=== PATIENT | female | born 1975 | race Caucasian/White ===

== ENCOUNTER 2017-10-25 11:26 | Emergency (ER) | payer OTHER ==
[~2017-10-25] VITALS: Ht 157.5 cm; Wt 80.7 kg
[~2017-10-25 11:26] MED LIST: CRUTCH4 USE; CYCL10 PO; HYDACE5 PO; HYDACE5325 PO; IBUP600; IBUP600 PO; IBUP800 PO; META800 PO; NAPR550 PO; PENVK500 PO; PRED20 PO; PROM25 PO; SULTRIDS PO
[2017-10-25] MEDS ORDERED: BUSP15 PO (12:16)
[2017-10-25] MEDS ORDERED: ALBU90OI6 INH (12:16)
[2017-10-25] MEDS ORDERED: ESCI20 PO (12:16)
[2017-10-25] MEDS ORDERED: Norco 5-325 Ta1 EACH PO (13:21)
[2017-10-25] MEDS ORDERED: IBUP600 PO (13:21)
== END 2017-10-25 13:32 | disposition home or self-care (01) ==
LOC: ER 11:26
DX: S93.401A Sprain of unspecified ligament of right ankle, initial encounter (principal); F17.200 Nicotine dependence, unspecified, uncomplicated; Z88.5 Allergy status to narcotic agent; Z79.899 Other long term (current) drug therapy; X50.1XXA Overexertion from prolonged static or awkward postures, initial encounter
CPT/HCPCS: 29515; 72100; 73030; 73610; 99283

== ENCOUNTER 2018-03-25 10:05 | Emergency (ER) | payer OTHER ==
[~2018-03-25] VITALS: Ht 157.5 cm; Wt 91.6 kg
[~2018-03-25 10:05] MED LIST changes: +ALBU90OI6 INH; +BUSP15 PO; +ESCI20 PO; +Norco 5-325 Ta1 EACH PO
[2018-03-25] MEDS ORDERED: HYDHOMSY PO (10:43)
[2018-03-25] MEDS ORDERED: Oxycodone-Apap1 EAC3 PO (10:43)
[2018-03-25] MEDS ORDERED: Hydrocodone-Ap1 EA23 PO (10:44)
[2018-03-25] MEDS ORDERED: LIDO700A20 TOP (10:54)
[2018-03-25] MEDS ORDERED: CYCL10 PO (10:54)
== END 2018-03-25 10:57 | disposition home or self-care (01) ==
LOC: ER 10:05
DX: S20.221A Contusion of right back wall of thorax, initial encounter (principal); F17.200 Nicotine dependence, unspecified, uncomplicated; Z88.5 Allergy status to narcotic agent; Z79.899 Other long term (current) drug therapy; W19.XXXA Unspecified fall, initial encounter; Y93.01 Activity, walking, marching and hiking; Y92.828 Other wilderness area as the place of occurrence of the external cause
CPT/HCPCS: 72070; 99283

== ENCOUNTER 2018-06-12 10:04 | Emergency (ER) | payer OTHER ==
[~2018-06-12] VITALS: Ht 157.5 cm; Wt 90.3 kg
[~2018-06-12 10:04] MED LIST changes: +HYDHOMSY PO; +Hydrocodone-Ap1 EA23 PO; +LIDO700A20 TOP; +Oxycodone-Apap1 EAC3 PO
[2018-06-12] MEDS ORDERED: BENZ100A (10:16)
[2018-06-12] MEDS ORDERED: PRED10 PO (10:17)
[2018-06-12] MEDS ORDERED: AZIT500 PO (10:17)
[2018-06-12 10:54] LABS: BASOPHILS ABSOLUTE AUTO 0.03 K/mm3 (0.00-0.23); BASOPHILS PERCENT AUTO 0 % (0-2); EOSINOPHILS ABSOLUTE AUTO 0.17 K/mm3 (0.00-0.68); EOSINOPHILS PERCENT AUTO 2 % (0-6); Hematocrit 42.6 % (33.0-51.0); Hemoglobin 13.5 g/dL (11.5-16.0); IMMATURE GRAN ABSOLUTE AUTO 0.05 K/mm3 (0.00-0.10); IMMATURE GRAN PERCENT AUTO 0 % (0-1); LYMPHOCYTES ABSOLUTE AUTO 1.58 K/mm3 (0.84-5.20); LYMPHOCYTES PERCENT AUTO 14 % (21-46); MONOCYTES ABSOLUTE AUTO 0.47 K/mm3 (0.16-1.47); MONOCYTES PERCENT AUTO 4 % (4-13); Mean Corpuscular HGB 26.6 pg (26.0-34.0); Mean Corpuscular HGB Conc 31.7 g/dL (31.5-36.5); Mean Corpuscular Volume 84 fL (80-100); Mean Platelet Volume 9.2 fL (9.1-12.4); NEUTROPHILS ABSOLUTE AUTO 8.91 K/mm3 (1.96-9.15); NEUTROPHILS PERCENT AUTO 80 % (41-73); Platelet Count 385 K/mm3 (150-400); RDW Coefficient Variation 16.5 % (11.7-14.2); RDW Standard Deviation 50.3 fL (35.1-46.3); Red Blood Cell Count 5.07 M/mm3 (3.80-5.20); White Blood Cell Count 11.21 K/mm3 (4.00-11.30)
[2018-06-12 11:12] LABS: Alanine Aminotransfer (ALT/SGP 24 U/L (12-78); Albumin, Blood 3.7 g/dL (3.4-5.0); Albumin/Globulin Ratio 0.9 (0.8-1.8); Alk Phos 73 U/L (50-136); Anion Gap 9 mmol/L (6-16); Aspartate Aminotrans (AST/SGOT 22 U/L (12-37); Bilirubin, Total 0.3 mg/dL (0.1-1.0); Blood Urea Nitrogen 9 mg/dL (8-24); Bun/Creatinine Ratio 11.7 (12.0-20.0); CO2, Blood 23 mmol/L (21-32); Calcium, Blood 8.9 mg/dL (8.5-10.1); Chloride, Blood 105 mmol/L (98-108); Creatinine, Blood 0.77 mg/dL (0.40-1.00); Globulin, Blood 4.3 g/dL (2.2-4.0); Glomerular Filtration Rate >60 (60-); Glucose, Blood 94 mg/dL (70-99); Sodium, Blood 137 mmol/L (136-145); Troponin I <0.015 ng/mL (0.000-0.040)
== END 2018-06-12 12:04 | disposition home or self-care (01) ==
LOC: ER 10:04
PROVIDERS: Physician Assistant
DX: R07.9 Chest pain, unspecified (principal); R05 Cough; R06.00 Dyspnea, unspecified; J45.909 Unspecified asthma, uncomplicated; Z88.5 Allergy status to narcotic agent; Z79.899 Other long term (current) drug therapy; Z79.51 Long term (current) use of inhaled steroids; Z79.52 Long term (current) use of systemic steroids; Z87.891 Personal history of nicotine dependence
CPT/HCPCS: 36415; 71046; 80053; 83880; 84484; 85025; 93005; 93010; 99285-25

== ENCOUNTER 2019-04-29 18:20 | Emergency (ER) | payer OTHER ==
[~2019-04-29] VITALS: Ht 157.5 cm; Wt 80.7 kg
[~2019-04-29 18:20] MED LIST changes: +AZIT500 PO; +BENZ100A; +PRED10 PO
[2019-04-29] MEDS ORDERED: Lexapro20 MG PO (20:16)
[2019-04-29] MEDS ORDERED: BUSP10 (20:16)
[2019-04-29] MEDS ORDERED: Budeprion Xl300 MG PO (20:16)
== END 2019-04-29 21:22 | disposition home or self-care (01) ==
LOC: ER 18:20
DX: Z04.71 Encounter for examination and observation following alleged adult physical abuse (principal); F17.210 Nicotine dependence, cigarettes, uncomplicated
CPT/HCPCS: 96372; 99283-25; J1885

== ENCOUNTER 2019-11-09 12:09 | Emergency (ER) | payer OTHER ==
[~2019-11-09] VITALS: Ht 157.5 cm; Wt 78.0 kg
[~2019-11-09 12:09] MED LIST changes: +BUSP10; +Budeprion Xl300 MG PO; +Lexapro20 MG PO
[2019-11-09] MEDS ORDERED: DICL75ER PO (13:38)
[2019-11-09] MEDS ORDERED: CYCL10 PO (13:38)
== END 2019-11-09 13:45 | disposition home or self-care (01) ==
LOC: ER 12:09
DX: M47.816 Spondylosis without myelopathy or radiculopathy, lumbar region (principal); M51.36 Other intervertebral disc degeneration, lumbar region; F17.210 Nicotine dependence, cigarettes, uncomplicated; Z88.5 Allergy status to narcotic agent; Z79.899 Other long term (current) drug therapy
CPT/HCPCS: 71046; 72100; 99283-25

== ENCOUNTER 2019-12-11 13:01 | Emergency (ER) | payer OTHER ==
[~2019-12-11] VITALS: Ht 157.5 cm; Wt 80.7 kg
[~2019-12-11 13:01] MED LIST changes: +DICL75ER PO
[2019-12-11] MEDS ORDERED: BUPR150ER PO (13:11)
[2019-12-11] MEDS ORDERED: ESCI20 PO (13:11)
[2019-12-11] MEDS ORDERED: BUSP10 PO (13:11)
[2019-12-11] MEDS ORDERED: Acetaminophen-1 EAC1 PO (14:13)
[2019-12-11] MEDS ORDERED: Robaxin-750750 MG PO (14:13)
[2019-12-11] MEDS ORDERED: Prednisone50 MG PO (14:13)
== END 2019-12-11 14:34 | disposition home or self-care (01) ==
LOC: ER 13:01
DX: M54.31 Sciatica, right side (principal); Z88.5 Allergy status to narcotic agent; Z79.899 Other long term (current) drug therapy; J45.909 Unspecified asthma, uncomplicated; F17.210 Nicotine dependence, cigarettes, uncomplicated
CPT/HCPCS: 99283; J7512

== ENCOUNTER 2021-10-20 13:57 | Emergency (ER) | payer OTHER ==
[~2021-10-20] VITALS: Ht 157.5 cm; Wt 76.7 kg
[~2021-10-20 13:57] MED LIST changes: +Acetaminophen-1 EAC1 PO; +BUPR150ER PO; +BUSP10 PO; +Prednisone50 MG PO; +Robaxin-750750 MG PO
[2021-10-20] MEDS ORDERED: ACETAMINOPHEN500 MG PO (15:11)
== END 2021-10-20 15:25 | disposition home or self-care (01) ==
LOC: ER 13:57
DX: M16.12 Unilateral primary osteoarthritis, left hip (principal); M54.50 Low back pain, unspecified; G89.29 Other chronic pain; F17.210 Nicotine dependence, cigarettes, uncomplicated
CPT/HCPCS: 73502; 99283-25; A9270

== ENCOUNTER 2022-08-22 06:50 | Emergency (ER) | payer OTHER ==
[~2022-08-22] VITALS: Ht 157.5 cm; Wt 69.0 kg
[~2022-08-22 06:50] MED LIST changes: +ACETAMINOPHEN500 MG PO
[2022-08-22 08:07] LABS: Source, Urine Clean Catch
[2022-08-22 08:12] LABS: Appearance, Urine Clear (Clear); Bilirubin, Urine Neg (Neg); Blood, Urine Neg (Neg); Color, Urine Yellow (P-Yellow); Glucose Qualitative, Urine Neg (Neg); Ketones, Urine Neg (Neg); Leukocyte Esterase, Urine Neg (Neg); Nitrite, Urine Neg (Neg); Protein, Urine Neg (Neg); Specific Gravity, Urine 1.015 (1.003-1.022); Urobilinogen, Urine NORM (Normal)
[2022-08-22 08:44] LABS: U Amphetamine Screen DETECTED; U Barbituate Screen Not Detected; U Benzodiazapine Screen Not Detected; U Buprenorphine Screen Not Detected; U Cannabinoids Screen Not Detected; U Cocaine Screen Not Detected; U Methadone Screen Not Detected; U Methamphetamine Screen DETECTED; U Opiates Screen Not Detected; U Oxycodone Screen Not Detected; U Phencyclidine Screen Not Detected; U Propoxyphene Screen Not Detected
== END 2022-08-22 08:30 | disposition left against medical advice (07) ==
LOC: ER 06:50
PROVIDERS: Emergency Medicine
DX: R53.1 Weakness (principal); F17.210 Nicotine dependence, cigarettes, uncomplicated
CPT/HCPCS: 81003

== ENCOUNTER 2023-05-01 08:18 | Emergency (ER) | payer OTHER ==
[~2023-05-01] VITALS: Ht 167.6 cm; Wt 74.8 kg
[2023-05-01 08:59] VITALS: BP 142/62
[2023-05-01] MEDS ORDERED: CYCL10 PO (12:10)
== END 2023-05-01 12:13 | disposition home or self-care (01) ==
LOC: ER 08:18
DX: M54.50 Low back pain, unspecified (principal); G89.29 Other chronic pain; R20.2 Paresthesia of skin; Z88.5 Allergy status to narcotic agent; Z79.899 Other long term (current) drug therapy; J45.909 Unspecified asthma, uncomplicated; F17.210 Nicotine dependence, cigarettes, uncomplicated
CPT/HCPCS: 96374; 99283-25; J1885

== ENCOUNTER 2023-08-25 17:42 | Inpatient (IN) | payer SELFPAY ==
[2023-08-25] VITALS (15 sets, daily range): BP systolic 88–117; BP diastolic 55–105
[~2023-08-25] VITALS: Ht 157.5 cm; Wt 71.5 kg
[2023-08-25 17:53] LABS: Base Excess Venous 2.9 mmol/L; Bicarbonate Venous 26.4 mmol/L (24.0-30.0); PCO2 Venous 45.9 mmHg (38-42); pH Blood Venous 7.39 (7.34-7.37)
[2023-08-25] MEDS ORDERED: ALBU90OI INH (17:56)
[2023-08-25] MEDS ORDERED: BUSP10 PO (17:57)
[2023-08-25] MEDS ORDERED: ESCI20 PO (17:57)
[2023-08-25 18:13] LABS: BASOPHILS ABSOLUTE AUTO 0.04 K/mm3 (0.00-0.23); BASOPHILS PERCENT AUTO 1 % (0-2); EOSINOPHILS ABSOLUTE AUTO 0.11 K/mm3 (0.00-0.68); EOSINOPHILS PERCENT AUTO 1 % (0-6); Hematocrit 33.3 % (33.0-51.0); Hemoglobin 10.1 g/dL (11.5-16.0); IMMATURE GRAN ABSOLUTE AUTO 0.03 K/mm3 (0.00-0.10); IMMATURE GRAN PERCENT AUTO 0 % (0-1); LYMPHOCYTES ABSOLUTE AUTO 2.05 K/mm3 (0.84-5.20); LYMPHOCYTES PERCENT AUTO 25 % (21-46); MONOCYTES ABSOLUTE AUTO 0.49 K/mm3 (0.16-1.47); MONOCYTES PERCENT AUTO 6 % (4-13); Mean Corpuscular HGB 21.8 pg (26.0-34.0); Mean Corpuscular HGB Conc 30.3 g/dL (31.5-36.5); Mean Corpuscular Volume 72 fL (80-100); Mean Platelet Volume 9.7 fL (9.1-12.4); NEUTROPHILS ABSOLUTE AUTO 5.35 K/mm3 (1.96-9.15); NEUTROPHILS PERCENT AUTO 66 % (41-73); Platelet Count 419 K/mm3 (150-400); RDW Coefficient Variation 20.3 % (11.7-14.2); RDW Standard Deviation 52.4 fL (35.1-46.3); Red Blood Cell Count 4.63 M/mm3 (3.80-5.20); White Blood Cell Count 8.07 K/mm3 (4.00-11.30)
[2023-08-25 18:29] LABS: Albumin, Blood 3.5 g/dL (3.4-5.0); Bilirubin, Total 0.1 mg/dL (0.1-1.0); Bun/Creatinine Ratio 14.7 (12.0-20.0); Calcium, Blood 8.6 mg/dL (8.5-10.1); Creatinine, Blood 0.89 mg/dL (0.40-1.00); Globulin, Blood 3.6 g/dL (2.2-4.0); Potassium, Blood 3.9 mmol/L (3.5-5.5); Total Protein, Blood 7.1 g/dL (6.4-8.2)
[2023-08-25 18:49] LABS: U Amphetamine Screen Not Detected; U Barbituate Screen Not Detected; U Benzodiazapine Screen Not Detected; U Buprenorphine Screen Not Detected; U Cannabinoids Screen Not Detected; U Cocaine Screen Not Detected; U Methadone Screen Not Detected; U Methamphetamine Screen Not Detected; U Opiates Screen Not Detected; U Oxycodone Screen Not Detected; U Phencyclidine Screen Not Detected
[2023-08-25 18:54] LABS: Influenza A, PCR NEGATIVE (NEGATIVE); Influenza B, PCR NEGATIVE (NEGATIVE); Resp Syncytial Virus, PCR NEGATIVE (NEGATIVE); SARS-Cov-2 (COVID-19) PCR, MMC NEGATIVE (NEGATIVE)
--- NOTE | 2023-08-25 22:39 | NUR ---
PT ALERT AND ANSERS ALL ORIENTATION QUESTIONS APPROPRIATELY, COOPERATIVE WITH CARE AND ABLE TO MAKE NEEDS KNOWN. PT ANSWERS SOME BUT NOT ALL QUESTIONS APPROPRIATELY. WHEN DOES DOESN'T ANSWER QUESTIONS APPROPRIATELY SHE WILL START TALKING ABOUT SOMETHING ELSE, SPEECH IS RAPID AND DISORGANIZED AT TIMES. PT WON'T SIT STILL, FIDGETY. PT ON 2L OXYGEN AND MAINTAINING 02 SATURATION ABOVE 92%, REPORT FROM ED NURSE SAID THEY TRIED TO TAKE HER OFF OXYGEN BUT PT DESATED, SO THEY CONTINUED WITH 2L, RESPIRATORY THERAPY HAS BEEN IN TO SEE PATIENT AND GAVE A BREATHING TREATMENT. PT'S HR IS SR/ST 90'S-100'S, PT DENIES CHEST PAIN/PRESSURE, PT SAID HX OF ABLATION FOR AFIB. PT SAID HX OF NUMBNESS/TINGLING IN EXTREMITIES, BUT IS NOT EXERIENCING IT NOW. PT HAS ATE A JELLO AND PART OF A SANDWICH, SHE SAID SHE IS SAVING THE REST OF THE SANDWICH FOR LATE. SHE HAS DRANK 2 CARTONS OF MILK AND SOME STARRY. PT EDUCATED TO CALL IF SHE NEEDS TO GET UP, PT STATED UNDERSTANDING. PT IS RESTING IN BED AND WATCHING TV WITH THE LIGHTS OFF, CALL LIGHT WITHIN REACH.
--- NOTE | 2023-08-25 23:22 | NUR ---
PT LOOKS LIKE SHE MAY BE GETTING SOME SLEEP. SHE IS LAYING ON HER R SIDE WITH HER EYES CLOSED, BUT SHE DOES MOVE AROUND A LITTLE BUT NOT MUCH EARLIER, AND DOESN'T OPEN HER EYES WHILE SHE MOVES. HER OXYGEN SATURATION IS MAINTAINING OVER 90% ON 2L NC, ALL VITALS STABLE.
[2023-08-26] VITALS (21 sets, daily range): BP systolic 88–123; BP diastolic 57–87
[2023-08-26 04:16] LABS: BASOPHILS ABSOLUTE AUTO 0.04 K/mm3 (0.00-0.23); BASOPHILS PERCENT AUTO 0 % (0-2); EOSINOPHILS PERCENT AUTO 0 % (0-6); Hematocrit 31.9 % (33.0-51.0); Hemoglobin 9.6 g/dL (11.5-16.0); IMMATURE GRAN ABSOLUTE AUTO 0.05 K/mm3 (0.00-0.10); IMMATURE GRAN PERCENT AUTO 0 % (0-1); LYMPHOCYTES ABSOLUTE AUTO 0.84 K/mm3 (0.84-5.20); LYMPHOCYTES PERCENT AUTO 5 % (21-46); MONOCYTES ABSOLUTE AUTO 1.13 K/mm3 (0.16-1.47); MONOCYTES PERCENT AUTO 7 % (4-13); Mean Corpuscular HGB 21.9 pg (26.0-34.0); Mean Corpuscular HGB Conc 30.1 g/dL (31.5-36.5); Mean Corpuscular Volume 73 fL (80-100); Mean Platelet Volume 9.4 fL (9.1-12.4); NEUTROPHILS PERCENT AUTO 88 % (41-73); Platelet Count 390 K/mm3 (150-400); RDW Coefficient Variation 20.1 % (11.7-14.2); RDW Standard Deviation 52.8 fL (35.1-46.3); Red Blood Cell Count 4.39 M/mm3 (3.80-5.20); White Blood Cell Count 16.76 K/mm3 (4.00-11.30)
--- NOTE | 2023-08-26 04:40 | NUR ---
SHIFT SUMMARY AROUND 0326 PT VOMITED, NOTIFIED & ORDERS PLACED, PT MEDICATED PER EMAR. PT SAID SHE FEELS BETTER AND IS NO LONGER NAUSEOUS. PT IS NOT MOVING AROUND AND FIDGETY SHE WAS WHEN SHE FIRST ARRIVED, HOWEVER HER HANDS HAVE STARTED TO INTERMITTENTLY SHAKE. PT SAID SHE SHAKES SOMETIMES NORMALLY, BUT NOT THIS MUCH. PUPILS CONTINUE TO BE EQUAL, ROUND, ACCOMODATING, AND STILL UNABLE TO ASSESS REACTIVE TO LIGHT WITH HOW SMALL IN DIAMETER THEY ARE. PT CONTINUES TO ANSWER ALL ORIENTATION QUESTIONS APPROPRIATELY. ABLE TO LIFT ARMS W/O DRIFTING OF EITHER ARM. CREAM BEATER STRENGTH INTACT AND STRONG BILATERALLY. PT IS ON 3L NC MAINTAINING 02 SATURATION ABOVE 92% WHEN SHE KEEPS THE OXYGEN ON. SHE KEEPS TAKING HER OXYGEN OFF AND AT TIMES HER OXYGEN WILL DROP INTO THE 80'S. PT DENIES SOB. HR STILL SR/ST 90'S-100S, BP STABLE, PT DENIES CHEST PAIN/PRESSURE. PT UP TO BATHROOM WITH NURSE ASSIST W/O DIZZINESS. BED ALARM ON B/C SHE HAS ATTEMPTED TO GET OUT OF BED W/O CALLING. PT HASN'T GOTTEN MUCH SLEEP TONIGHT. SHE IS CURRENTLY IN BED WITH TV ON, CALL LIGHT WITHIN REACH.
[2023-08-26 04:41] LABS: Percent Saturation 6.4 % (15.0-50.0)
--- NOTE | 2023-08-26 07:56 | NUR ---
AM NOTE PT IMPULSIVE SHE GOT OUT OF BED W/OUT CALLING AND SET OFF BED ALARM. PT EDUCATED REGARDING CALL LIGHT USE, SHE AMBULATED TO BR AND APPEARED STEADY ON HER FEET BUT REPORTED FEELING LIGHTHEADED/DIZZY. BED ALARM ON, CALL LIGHT IN REACH.
--- NOTE | 2023-08-26 13:35 | NUR ---
CARE NOTE PT DISCONNECTED FROM ALL IV'S DUE TO COMPLETION OF INFUSION, SPO2 WAS 95% VIA RA SO NC ALSO REMOVED. SHE IS FREE OF LINES/TUBES. THIS RN REASSESSED GAIT/WALKING ABILITY AND PT APPEARED STEADY ON HER FEET. SHE DENIED FEELING LIGHTHEADED/DIZZY THEREFORE BED ALARM IS NOW OFF AND PT IS INDEPENDENT IN THE ROOM. NON-SKID SOCKS ARE IN PLACE.
--- NOTE | 2023-08-26 17:12 | NUR ---
SHIFT SUMMARY PT IS ALERT AND ORIENTED X 3, SHE IS ABLE TO MAKE HER NEEDS KNOWN. SHE HAS BEEN EMOTIONALLY LABILE/TEARFUL DURING SHIFT AND EXPRESSED GREAT CONCERS ABOUT NOT WANTING TO . THIS RN COMMUNICATED THERAPEUTICALLY W/ PT AND EDUCATED HER REGARDING HER MEDICAL STATUS. THIS RN ALSO EDUCATED PT REGARDING BREATHING TECHNIQUES WHEN FEELING ANXIOUS. VSS, SPO2 MAINTAINED >95% VIA RA-2L NC. SHE HAS DENIED FEELINGS OF CHEST PAIN/PRESSURE WELL FEELING SOB. SHE REPORTED FEELING NAUSEOUS DURING SHIFT, PLEASE SEE EMAR FOR NAUSEA MANAGEMENT. WHEN PT WAS GETTING INTO SHOWER NAUSEA INCREASED AND SHE VOMITTED IN BR BUT NAUSEA HAS SINCE STOPPED AND SHE IS NOW EATING HER DINNER. SHE HAS BEEN AMBULATORY DURING SHIFT AND APPEARS STEADY ON HER FEET. WHEN IV IS INFUSING SHE IS A 1 PERSON SBA BUT IS OTHERWISE INDEPENDENT IN THE ROOM. SHE WAS PICKING AT IV IN L AC AND ACCIDENTALLY PULLED IT THEREFORE HAS 1 IV THAT IS SALINE LOCKED. SHE REPORTED A HEADACHE 7/10 PAIN, PLEASE SEE EMAR FOR PAIN MANAGEMENT. CALL LIGHT IS W/IN REACH.
[2023-08-27 03:56] VITALS: BP 109/69
[2023-08-27 04:05] LABS: Hematocrit 27.4 % (33.0-51.0); Hemoglobin 8.2 g/dL (11.5-16.0); Mean Corpuscular HGB Conc 29.9 g/dL (31.5-36.5); Mean Corpuscular Volume 74 fL (80-100); Mean Platelet Volume 9.4 fL (9.1-12.4); Platelet Count 334 K/mm3 (150-400); RDW Coefficient Variation 20.2 % (11.7-14.2); RDW Standard Deviation 53.5 fL (35.1-46.3); Red Blood Cell Count 3.73 M/mm3 (3.80-5.20); White Blood Cell Count 9.35 K/mm3 (4.00-11.30)
[2023-08-27 04:26] LABS: Bun/Creatinine Ratio 12.5 (12.0-20.0); Calcium, Blood 8.4 mg/dL (8.5-10.1); Creatinine, Blood 0.96 mg/dL (0.40-1.00); Potassium, Blood 4.1 mmol/L (3.5-5.5)
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
--- NOTE | 2023-08-27 08:15 | NUR ---
INITIAL ASSESSMENT: Patient is alert and oriented x2. She reports TAVARES at this time, motrin given by student. Patient will go from completely calm to screaming and crying stating, "I don't want this to happen again, am I going to be okay?" Patient reassured we are monitoring her and this would not happen again if she doesn't consume any illegal substances. Patient is able to deesclate with reassurance. HRR. LS DIM T/O wtih some coarseness noted on the right, she has a NPC. BT+, she is a little distended but denies pain. PPP. Patient states she is having some slight numbness and tingling. VSS. Student RN administered AM medications. Patients IV went bad. Dr. Mendes is at the bedside states we can leave the IV out, she will switch all of her medications to oral. Patient denies other needs at this time. Call light in reach.
[2023-08-27 09:00] VITALS: BP 121/86
[2023-08-27] MEDS ORDERED: PROBIOTIC1 EA13 PO (10:36)
[2023-08-27] MEDS ORDERED: ASCO500 PO (10:37)
[2023-08-27] MEDS ORDERED: Dulcolax Stool100 MG PO (10:37)
[2023-08-27] MEDS ORDERED: AMOCLA875 PO (10:37)
[2023-08-27] MEDS ORDERED: FEROSUL325 MG PO (10:38)
--- NOTE | 2023-08-27 12:48 | NUR ---
Discharge: Patient verbalized understanding of discharge instructions. The plan is to have her catch a cab to the court house. She is ambulating out to be discharged.
== END 2023-08-27 12:50 | disposition home or self-care (01) | DRG 917 ==
LOC: ER 17:42 → PCU 19:40
PROVIDERS: Emergency Medicine; Internal Medicine; ADMIT Internal Medicine
PROC: 5A12012 Performance of Cardiac Output, Single, Manual (ICD-10-PCS; principal; 2023-08-25)
DX: T40.411A Poisoning by fentanyl or fentanyl analogs, accidental (unintentional), initial encounter (principal); I46.8 Cardiac arrest due to other underlying condition; J69.0 Pneumonitis due to inhalation of food and vomit; J96.01 Acute respiratory failure with hypoxia; T40.601A Poisoning by unspecified narcotics, accidental (unintentional), initial encounter; I48.0 Paroxysmal atrial fibrillation; D50.9 Iron deficiency anemia, unspecified; F32.A Depression, unspecified; M54.9 Dorsalgia, unspecified; F17.210 Nicotine dependence, cigarettes, uncomplicated; F12.90 Cannabis use, unspecified, uncomplicated; G89.29 Other chronic pain; M51.36 Other intervertebral disc degeneration, lumbar region; J45.909 Unspecified asthma, uncomplicated; Z98.890 Other specified postprocedural states; Z11.52 Encounter for screening for COVID-19; Z88.5 Allergy status to narcotic agent; Z79.899 Other long term (current) drug therapy; Z79.51 Long term (current) use of inhaled steroids
CPT/HCPCS: 0241U; 36415; 71045; 80048; 80053; 81025; 82728; 82803; 83540; 83550; 83880; 84145; 84484; 84703; 85025; 85027; 93005; 93010; 94640; 94644; 94664; 94760; 94762; 99285-25; A9270; J1650; J2310; J2405; J2543; J2916

== ENCOUNTER 2024-06-11 12:14 | Emergency (ER) | payer OTHER ==
[~2024-06-11] VITALS: Ht 157.5 cm; Wt 74.8 kg
[~2024-06-11 12:14] MED LIST changes: +ALBU90OI INH; +AMOCLA875 PO; +ASCO500 PO; +Dulcolax Stool100 MG PO; +FEROSUL325 MG PO; +PROBIOTIC1 EA13 PO
[2024-06-11 12:37] VITALS: BP 154/78
[2024-06-11] MEDS ORDERED: BUSPIRONE HCL30 M1 PO (13:42)
[2024-06-11] MEDS ORDERED: Lexapro 2020 MG PO (13:42)
== END 2024-06-11 13:48 | disposition home or self-care (01) ==
LOC: ER 12:14
DX: S06.9X9A Unspecified intracranial injury with loss of consciousness of unspecified duration, initial encounter (principal); W18.39XA Other fall on same level, initial encounter; J45.909 Unspecified asthma, uncomplicated; F17.210 Nicotine dependence, cigarettes, uncomplicated; Z88.5 Allergy status to narcotic agent; Z79.899 Other long term (current) drug therapy
CPT/HCPCS: 70450

== ENCOUNTER 2024-10-28 19:35 | Emergency (ER) | payer OTHER ==
[~2024-10-28] VITALS: Ht 167.6 cm; Wt 68.0 kg
[~2024-10-28 19:35] MED LIST changes: +BUSPIRONE HCL30 M1 PO; +Ketamine HCl 100 MG / ML 5ML Vial IV ONE; +Lexapro 2020 MG PO; +Rocuronium Bromide 10 MG/ML 5ML Injection IV ONE
[2024-10-28] MEDS ORDERED: NS 1,000 ML IV ONE ×4 (19:49→22:38)
[2024-10-28 20:00] LABS: BASOPHILS ABSOLUTE AUTO 0.01 K/mm3 (0.00-0.23); BASOPHILS PERCENT AUTO 0 % (0-2); EOSINOPHILS ABSOLUTE AUTO 0.02 K/mm3 (0.00-0.68); EOSINOPHILS PERCENT AUTO 1 % (0-6); Hemoglobin 8.8 g/dL (11.5-16.0); IMMATURE GRAN ABSOLUTE AUTO 0.07 K/mm3 (0.00-0.10); IMMATURE GRAN PERCENT AUTO 2 % (0-1); LYMPHOCYTES ABSOLUTE AUTO 1.24 K/mm3 (0.84-5.20); LYMPHOCYTES PERCENT AUTO 33 % (21-46); MONOCYTES ABSOLUTE AUTO 0.15 K/mm3 (0.16-1.47); MONOCYTES PERCENT AUTO 4 % (4-13); Mean Corpuscular HGB 26.5 pg (26.0-34.0); Mean Corpuscular HGB Conc 30.3 g/dL (31.5-36.5); Mean Corpuscular Volume 87 fL (80-100); Mean Platelet Volume 10.3 fL (9.1-12.4); NEUTROPHILS ABSOLUTE AUTO 2.33 K/mm3 (1.96-9.15); NEUTROPHILS PERCENT AUTO 61 % (41-73); NRBC ABSOLUTE 0.03 K/mm3 (0.00-0.02); NRBC Auto 0.8 /100 WBC (0.0-0.2); Platelet Count 262 K/mm3 (150-400); RDW Coefficient Variation 17.7 % (11.7-14.2); RDW Standard Deviation 56.7 fL (35.1-46.3); Red Blood Cell Count 3.32 M/mm3 (3.80-5.20); White Blood Cell Count 3.82 K/mm3 (4.00-11.30)
[2024-10-28] MEDS ORDERED: CALCIUM GLUC IN NACL, ISO-OSM 100 ML IV ONE (20:10)
[2024-10-28 20:16] LABS: International Normalized Ratio 1.53; Prothrombin Time Results 15.9 Sec (9.7-11.5)
[2024-10-28 20:32] LABS: Alanine Aminotransfer (ALT/SGP 37 U/L (12-78); Albumin, Blood 2.6 g/dL (3.4-5.0); Albumin/Globulin Ratio 0.9 (0.8-1.8); Alk Phos 55 U/L (50-136); Anion Gap 16 mmol/L (3-11); Aspartate Aminotrans (AST/SGOT 87 U/L (12-37); Beta HCG, Quantitative, Serum <1 mIU/mL (0-3); Bilirubin, Total 0.2 mg/dL (0.1-1.0); Blood Urea Nitrogen 19 mg/dL (8-24); Bun/Creatinine Ratio 16.1 (12.0-20.0); CO2, Blood 18 mmol/L (21-32); Chloride, Blood 108 mmol/L (98-108); Creatinine, Blood 1.18 mg/dL (0.40-1.00); Ethanol (Alcohol), Blood, Med <3 mg/dL; Globulin, Blood 2.8 g/dL (2.2-4.0); Glomerular Filtration Rate 58 (60-); Glucose, Blood 314 mg/dL (70-99); Potassium, Blood 4.7 mmol/L (3.5-5.5); Sodium, Blood 137 mmol/L (136-145); Total Protein, Blood 5.4 g/dL (6.4-8.2)
[2024-10-28 20:50] LABS: PCO2 Arterial 55.4 mmHg (35-45); PO2 Arterial 67.4 mmHg (80-100); pH Blood Arterial 7.09 (7.35-7.45)
[2024-10-28 20:51] VITALS: BP 56/34
[2024-10-28] MEDS ORDERED: Vasopressin 20 UNITS in NS 100 ML IV SCH (21:30)
[2024-10-28 22:42] LABS: Hematocrit 28.5 % (33.0-51.0); Hemoglobin 9.2 g/dL (11.5-16.0); Mean Platelet Volume 9.1 fL (9.1-12.4); Platelet Count 151 K/mm3 (150-400)
[2024-10-28 22:47] LABS: Calcium, Blood 7.7 mg/dL (8.5-10.1)
[2024-10-28] MEDS ORDERED: fentaNYL citrate 1,000 MCG in NS 80 ML IV SCH (22:50)
[2024-10-28 23:01] LABS: International Normalized Ratio 1.55; Prothrombin Time Results 16.1 Sec (9.7-11.5)
== END 2024-10-28 23:07 | disposition short-term general hospital (02) ==
LOC: ER 19:35
PROVIDERS: Emergency Medicine
DX: S02.19XA Other fracture of base of skull, initial encounter for closed fracture (principal); S02.2XXA Fracture of nasal bones, initial encounter for closed fracture; S02.40FA Zygomatic fracture, left side, initial encounter for closed fracture; S02.609A Fracture of mandible, unspecified, initial encounter for closed fracture; S22.42XA Multiple fractures of ribs, left side, initial encounter for closed fracture; S72.355A Nondisplaced comminuted fracture of shaft of left femur, initial encounter for closed fracture; S42.002A Fracture of unspecified part of left clavicle, initial encounter for closed fracture; S32.9XXA Fracture of unspecified parts of lumbosacral spine and pelvis, initial encounter for closed fracture; S06.5XAA Traumatic subdural hemorrhage with loss of consciousness status unknown, initial encounter; S36.030A Superficial (capsular) laceration of spleen, initial encounter; S30.0XXA Contusion of lower back and pelvis, initial encounter; V03.99XA Pedestrian with other conveyance injured in collision with car, pick-up truck or van, unspecified whether traffic or nontraffic accident, initial encounter; J45.909 Unspecified asthma, uncomplicated; I48.91 Unspecified atrial fibrillation; F17.200 Nicotine dependence, unspecified, uncomplicated; Z88.5 Allergy status to narcotic agent; Z79.899 Other long term (current) drug therapy
CPT/HCPCS: 31500; 32551; 36430; 36556; 36625; 70450; 71045; 71260; 72125; 73552; 74177; 80053; 80320; 82310; 82803; 83690; 84702; 85014; 85018; 85025; 85049; 85384; 85610; 85730; 86850; 86900; 86901; 86923; 93005; 93010; 94002; 99285-25; C1751; J0612; J3010; J7030; J7060; P9016; P9059; Q9967